=== PATIENT | male | born 1970 | race Caucasian/White ===

== ENCOUNTER 2023-12-08 07:36 | Emergency (ER) | payer OTHER ==
[2023-12-08 07:45] VITALS: BP 118/73; PULSE 88; RESP 18; TEMP 97.5; BMI 27.2
[2023-12-08] MEDS ORDERED: ACETAMINOPHEN INJECTION 100 ML ONE (08:43)
[2023-12-08] MEDS: ACETAMINOPHEN 1000 MG/100 ML BAG IVPB ONE (08:49)
[2023-12-08] MEDS: LACTATED RINGERS SOLUTION 1000 ML INFUS.BAG IV ONE (08:49)
[2023-12-08 08:52] LABS: EPI CELLS 9 /uL (0-25.1); HYALINE CASTS 1 /uL (0-3.1); PH,URINE 5.5 (5.0-8.0); URINE APPEARANCE CLEAR; URINE BACTERIA 6 /uL (0-1359); URINE BILIRUBIN NEGATIVE (NEGATIVE); URINE COLOR DK YELLOW; URINE GLUCOSE (UA) NEGATIVE (NEGATIVE); URINE KETONE TRACE (NEGATIVE); URINE LEUK ESTERASE NEGATIVE (NEGATIVE); URINE NITRITE NEGATIVE (NEGATIVE); URINE PROTEIN 1+ (NEGATIVE); URINE WBC 15 /uL (0-25.8)
[2023-12-08 08:57] LABS: BASO % 0.6 % (0-2.0); EOS % 3.6 % (0-4.5); HEMATOCRIT 40.6 % (35.4-49); HEMOGLOBIN 13.9 GM/dL (11.7-16.9); LYMPH % 26.9 % (8-40); MCH 29.4 pg (25.7-33.7); MCHC 34.3 g/dl (32.0-35.9); MEAN CELL VOLUME 85.8 fl (80-96); MEAN PLT VOLUME 7.7 fl (7.5-11.1); MONO % 6.5 % (3.8-10.2); NEUT % 62.4 % (42.8-82.8); PLATELET COUNT 198 10^3/uL (134-434); RBC 4.73 M/mm3 (4.00-5.60); RDW 13.5 % (11.9-15.9); WHITE BLOOD COUNT 6.6 K/mm3 (4.0-10.0)
[2023-12-08] MEDS ORDERED: ONDANSETRON 4 MG/2 ML VIAL ONE (09:09)
[2023-12-08 09:10] LABS: POTASSIUM 4.3 mmol/L (3.5-5.1); URINE RBC 1181.1 /uL (0-23.9)
[2023-12-08 09:12] LABS: ALBUMIN 3.8 g/dl (3.4-5.0); BLOOD UREA NITROGEN 24.6 mg/dL (7-18); CALCIUM 9.4 mg/dL (8.5-10.1)
[2023-12-08] MEDS: ONDANSETRON 4 MG/2 ML VIAL IVPUSH ONE (09:12)
[2023-12-08 09:16] LABS: CREATININE 1.7 mg/dL (0.55-1.3)
[2023-12-08 09:17] LABS: BILIRUBIN,TOTAL 0.6 mg/dL (0.2-1); TOT PROT 7.2 g/dl (6.4-8.2)
[2023-12-08] MEDS ORDERED: morphine SULFATE 4 MG/ML VIAL ONE (09:46)
[2023-12-08] MEDS: morphine CARPU-JECT 4 MG/1 ML DISP.SYRIN IVPUSH ONE (09:52)
[2023-12-08] MEDS ORDERED: TAMSULOSIN HCL 0.4 MG CAP ONE (12:29)
[2023-12-08] MEDS: TAMSULOSIN HCL 0.4 MG CAP PO ONE (12:30)
== END 2023-12-08 12:30 | disposition home or self-care (01) ==
LOC: JER 07:36
PROC: 3E033NZ Introduction of Analgesics, Hypnotics, Sedatives into Peripheral Vein, Percutaneous Approach (ICD-10-PCS; principal; 2023-12-08)
PROC: 3E033NZ Introduction of Analgesics, Hypnotics, Sedatives into Peripheral Vein, Percutaneous Approach (ICD-10-PCS; 2023-12-08)
PROC: 3E033GC Introduction of Other Therapeutic Substance into Peripheral Vein, Percutaneous Approach (ICD-10-PCS; 2023-12-08)
DX: M54.9 Dorsalgia, unspecified (principal); R10.9 Unspecified abdominal pain; R11.0 Nausea; N20.0 Calculus of kidney
CPT/HCPCS: 36415; 74176-TC; 80053; 81003; 85025; 87086; 99284-25; J0131

== ENCOUNTER 2023-12-09 22:29 | Day surgery (SDC) | payer OTHER ==
[2023-12-09 22:41] VITALS: BMI 27.0
[2023-12-09] MEDS ORDERED: morphine SULFATE 4 MG/ML VIAL ONE (23:08)
[2023-12-09] MEDS ORDERED: ONDANSETRON 4 MG/2 ML VIAL ONE (23:08)
[2023-12-09] MEDS: LACTATED RINGERS SOLUTION 1000 ML INFUS.BAG IV ONE (23:29)
[2023-12-09] MEDS: morphine CARPU-JECT 2 MG/1 ML DISP.SYRIN IVPUSH ONE (23:29)
[2023-12-09] MEDS: ONDANSETRON 4 MG/2 ML VIAL IVPUSH ONE (23:30)
[2023-12-09 23:34] LABS: BASO % 0.5 % (0-2.0); EOS % 1.7 % (0-4.5); HEMATOCRIT 38.6 % (35.4-49); HEMOGLOBIN 13.2 GM/dL (11.7-16.9); MCH 29.6 pg (25.7-33.7); MCHC 34.3 g/dl (32.0-35.9); MEAN CELL VOLUME 86.4 fl (80-96); MEAN PLT VOLUME 7.8 fl (7.5-11.1); MONO % 8.3 % (3.8-10.2); NEUT % 72.5 % (42.8-82.8); PLATELET COUNT 179 10^3/uL (134-434); RBC 4.46 M/mm3 (4.00-5.60); WHITE BLOOD COUNT 7.7 K/mm3 (4.0-10.0)
[2023-12-09 23:42] LABS: INR 0.98 (0.83-1.09); PROTHROMBIN TIME (PATIENT) 11.1 SEC (9.7-13.0)
[2023-12-09 23:44] LABS: ACTIVATED PTT 30.2 SECONDS (25.2-36.5)
[2023-12-10] MEDS ORDERED: ACETAMINOPHEN INJECTION 100 ML ONE (00:01)
[2023-12-10 00:03] LABS: POTASSIUM 4.4 mmol/L (3.5-5.1)
[2023-12-10 00:05] LABS: ALBUMIN 3.7 g/dl (3.4-5.0); BLOOD UREA NITROGEN 30.8 mg/dL (7-18); CALCIUM 9.4 mg/dL (8.5-10.1); MAGNESIUM 2.1 mg/dL (1.8-2.4)
[2023-12-10 00:08] LABS: CREATININE 3.2 mg/dL (0.55-1.3)
[2023-12-10 00:10] LABS: BILIRUBIN,TOTAL 0.4 mg/dL (0.2-1); TOT PROT 6.8 g/dl (6.4-8.2)
[2023-12-10] MEDS: ACETAMINOPHEN 1000 MG/100 ML BAG IVPB ONE (00:22)
[2023-12-10 00:42] LABS: URINE APPEARANCE CLEAR; URINE BILIRUBIN NEGATIVE (NEGATIVE); URINE COLOR YELLOW; URINE GLUCOSE (UA) NEGATIVE (NEGATIVE); URINE KETONE NEGATIVE (NEGATIVE); URINE LEUK ESTERASE NEGATIVE (NEGATIVE); URINE NITRITE NEGATIVE (NEGATIVE); URINE PROTEIN NEGATIVE (NEGATIVE); URINE UROBILINOGEN 0.2 mg/dL (0.2-1.0)
[2023-12-10] MEDS ORDERED: HYDROmorphone HCl 2 MG/ML VIAL ONE (01:53)
[2023-12-10] MEDS: HYDROmorphone HCl 2 MG/ML VIAL IVPUSH ONE (02:02)
[2023-12-10] MEDS ORDERED: morphine SULFATE 4 MG/ML VIAL IVPUSH PRN (05:00)
[2023-12-10] MEDS ORDERED: ACETAMINOPHEN 1000 MG/100 ML BAG IVPB PRN (07:00)
[2023-12-10 10:16] LABS: HEMOGLOBIN 12.4 GM/dL (11.7-16.9); MCH 29.3 pg (25.7-33.7); MCHC 33.6 g/dl (32.0-35.9); MEAN CELL VOLUME 87.1 fl (80-96); MEAN PLT VOLUME 8.2 fl (7.5-11.1); PLATELET COUNT 164 10^3/uL (134-434); RBC 4.25 M/mm3 (4.00-5.60); RDW 13.7 % (11.9-15.9); WHITE BLOOD COUNT 7.4 K/mm3 (4.0-10.0)
[2023-12-10 10:28] LABS: POTASSIUM 3.7 mmol/L (3.5-5.1)
[2023-12-10 10:34] LABS: CALCIUM 8.6 mg/dL (8.5-10.1)
[2023-12-10 10:35] LABS: ALBUMIN 3.3 g/dl (3.4-5.0); MAGNESIUM 1.9 mg/dL (1.8-2.4)
[2023-12-10 10:38] LABS: CREATININE 2.4 mg/dL (0.55-1.3); PHOSPHOROUS 3.3 mg/dL (2.5-4.9)
[2023-12-10 10:39] LABS: BILIRUBIN,TOTAL 0.8 mg/dL (0.2-1)
[2023-12-10] MEDS: TAMSULOSIN HCL 0.4 MG CAP PO SCH (10:39)
[2023-12-10] MEDS: LACTATED RINGERS SOLUTION 1,000 ML/1,000 ML INFUS.BAG IV SCH (10:39)
[2023-12-10] MEDS: ENOXAPARIN NA (PORCINE) 40 MG/0.4 ML DISP.SYRIN SQ SCH (10:39)
[2023-12-10 10:40] LABS: TOT PROT 6.4 g/dl (6.4-8.2)
[2023-12-10] MEDS: ACETAMINOPHEN 1000 MG/100 ML BAG IVPB SCH (18:30)
[2023-12-11] MEDS: amLODIPine BESYLATE 5 MG TABLET (FP) PO SCH (10:45)
[2023-12-11 11:32] LABS: BASO % 0.6 % (0-2.0); EOS % 3.6 % (0-4.5); HEMATOCRIT 36.4 % (35.4-49); HEMOGLOBIN 12.3 GM/dL (11.7-16.9); LYMPH % 30.5 % (8-40); MCH 29.3 pg (25.7-33.7); MCHC 33.9 g/dl (32.0-35.9); MEAN CELL VOLUME 86.5 fl (80-96); MEAN PLT VOLUME 7.8 fl (7.5-11.1); MONO % 9.7 % (3.8-10.2); NEUT % 55.6 % (42.8-82.8); PLATELET COUNT 159 10^3/uL (134-434); RBC 4.21 M/mm3 (4.00-5.60); RDW 13.9 % (11.9-15.9); WHITE BLOOD COUNT 4.1 K/mm3 (4.0-10.0)
[2023-12-11 11:39] LABS: INR 1.08 (0.83-1.09); PROTHROMBIN TIME (PATIENT) 12.2 SEC (9.7-13.0)
[2023-12-11 12:18] LABS: ALBUMIN 3.2 g/dl (3.4-5.0); BLOOD UREA NITROGEN 15.3 mg/dL (7-18); CALCIUM 9.3 mg/dL (8.5-10.1)
[2023-12-11 12:19] LABS: MAGNESIUM 1.9 mg/dL (1.8-2.4)
[2023-12-11 12:21] LABS: CREATININE 1.3 mg/dL (0.55-1.3)
[2023-12-11 12:22] LABS: PHOSPHOROUS 2.8 mg/dL (2.5-4.9)
[2023-12-11 12:23] LABS: BILIRUBIN,TOTAL 0.9 mg/dL (0.2-1); TOT PROT 6.1 g/dl (6.4-8.2)
[2023-12-11] MEDS ORDERED: LACTATED RINGERS SOLUTION 1,000 ML/1,000 ML INFUS.BAG IV SCH (13:16)
[2023-12-11] MEDS ORDERED: LACTATED RINGERS SOLUTION 1,000 ML IV SCH (15:15)
[2023-12-11] MEDS ORDERED: ONDANSETRON 4 MG/2 ML VIAL IVPUSH PRN ×2 (15:15→17:39)
[2023-12-11] MEDS ORDERED: MIDAZOLAM HCL 2 MG/2 ML SINGLE DOSE VIAL ONE (16:23)
[2023-12-11] MEDS ORDERED: PROPOFOL 20 ML ONE (16:23)
[2023-12-11] MEDS: ceFAZolin SODIUM 1 GM VIAL IVPB ONE (16:37)
[2023-12-11] MEDS ORDERED: ONDANSETRON 4 MG/2 ML VIAL ONE (17:04)
[2023-12-11] MEDS ORDERED: DEXAMETHASONE SOD PHOSPHATE 4 MG/1 ML VIAL ONE (17:04)
[2023-12-11] MEDS ORDERED: morphine SULFATE 4 MG/ML VIAL IVPUSH PRN (17:39)
[2023-12-11] MEDS: LACTATED RINGERS SOLUTION 1,000 ML IV SCH (17:49)
[2023-12-11] MEDS ORDERED: ACETAMINOPHEN INJECTION 100 ML ONE (17:51)
[2023-12-11] MEDS: ACETAMINOPHEN 1000 MG/100 ML BAG IVPB SCH (17:52)
[2023-12-12 08:35] LABS: BASO % 0.3 % (0-2.0); EOS % 0.1 % (0-4.5); HEMATOCRIT 36.1 % (35.4-49); HEMOGLOBIN 12.6 GM/dL (11.7-16.9); LYMPH % 12.4 % (8-40); MCHC 34.9 g/dl (32.0-35.9); MEAN CELL VOLUME 85.8 fl (80-96); MONO % 5.6 % (3.8-10.2); NEUT % 81.6 % (42.8-82.8); PLATELET COUNT 186 10^3/uL (134-434); RBC 4.21 M/mm3 (4.00-5.60); RDW 13.8 % (11.9-15.9); WHITE BLOOD COUNT 7.3 K/mm3 (4.0-10.0)
[2023-12-12] MEDS: TAMSULOSIN HCL 0.4 MG CAP PO SCH (08:38)
[2023-12-12 08:47] LABS: POTASSIUM 4.1 mmol/L (3.5-5.1)
[2023-12-12 08:53] LABS: ALBUMIN 3.2 g/dl (3.4-5.0); BLOOD UREA NITROGEN 20.6 mg/dL (7-18); CALCIUM 8.9 mg/dL (8.5-10.1)
[2023-12-12 08:54] LABS: MAGNESIUM 1.5 mg/dL (1.8-2.4)
[2023-12-12 08:56] LABS: BILIRUBIN,TOTAL 0.6 mg/dL (0.2-1); TOT PROT 6.3 g/dl (6.4-8.2)
[2023-12-12 08:57] LABS: CREATININE 1.3 mg/dL (0.55-1.3); PHOSPHOROUS 3.5 mg/dL (2.5-4.9)
[2023-12-12] MEDS: amLODIPine BESYLATE 5 MG TABLET (FP) PO SCH (10:09)
[2023-12-12] MEDS: MAGNESIUM CL 64 MG TABLET.SA PO ONE (10:11)
[2023-12-12 12:14] VITALS: BP 111/71; PULSE 88; RESP 19; TEMP 98.2
== END 2023-12-12 10:51 | disposition home or self-care (01) ==
LOC: JER 22:29 → JERBED 12-10 01:00 → UNDOADMOB 12-10 01:00 → J6W 12-10 04:55 → JERBED 12-10 04:55 → JASUSAT 12-11 14:39 → J6W 12-11 14:45 → JASUSAT 12-12 10:51
PROC: 0T778DZ Dilation of Left Ureter with Intraluminal Device, Via Natural or Artificial Opening Endoscopic (ICD-10-PCS; principal; 2023-12-11 12:00)
DX: N13.1 Hydronephrosis with ureteral stricture, not elsewhere classified (principal)
CPT/HCPCS: 36415; 74176-TC; 76000-TC-FY; 76775-TC; 80053; 81003; 83735; 84100; 85025; 85027; 85610; 85730; 86850; 86900; 86901; 87086; 93005; 93010; 94760; 99285-25; C1747; C1758; C1769; C2617; J0131

== ENCOUNTER 2023-12-31 22:22 | Emergency (ER) | payer OTHER ==
[2023-12-31 22:29] VITALS: BP 140/73; PULSE 110; RESP 22; TEMP 98.8; BMI 27.0
[2023-12-31] MEDS ORDERED: morphine SULFATE 4 MG/ML VIAL ONE (22:58)
[2023-12-31 23:05] LABS: EPI CELLS 1 /uL (0-25.1); HYALINE CASTS 0 /uL (0-3.1); PH,URINE 7.5 (5.0-8.0); URINE APPEARANCE CLEAR; URINE BACTERIA 13 /uL (0-1359); URINE BILIRUBIN NEGATIVE (NEGATIVE); URINE COLOR YELLOW; URINE GLUCOSE (UA) NEGATIVE (NEGATIVE); URINE KETONE NEGATIVE (NEGATIVE); URINE LEUK ESTERASE NEGATIVE (NEGATIVE); URINE NITRITE NEGATIVE (NEGATIVE); URINE PROTEIN NEGATIVE (NEGATIVE); URINE RBC 216 /uL (0-23.9); URINE WBC 4 /uL (0-25.8)
[2023-12-31] MEDS: morphine CARPU-JECT 4 MG/1 ML DISP.SYRIN IVPUSH ONE (23:13)
[2023-12-31] MEDS ORDERED: TAMSULOSIN HCL 0.4 MG CAP ONE (23:18)
[2023-12-31 23:21] LABS: BASO % 0.6 % (0-2.0); EOS % 1.6 % (0-4.5); HEMATOCRIT 37.7 % (35.4-49); HEMOGLOBIN 12.8 GM/dL (11.7-16.9); LYMPH % 17.4 % (8-40); MCH 29.3 pg (25.7-33.7); MEAN CELL VOLUME 86.1 fl (80-96); MEAN PLT VOLUME 8.3 fl (7.5-11.1); NEUT % 75.4 % (42.8-82.8); PLATELET COUNT 238 10^3/uL (134-434); RBC 4.38 M/mm3 (4.00-5.60); RDW 13.6 % (11.9-15.9); WHITE BLOOD COUNT 9.9 K/mm3 (4.0-10.0)
[2023-12-31] MEDS: TAMSULOSIN HCL 0.4 MG CAP PO ONE (23:21)
[2023-12-31 23:27] LABS: INR 1.02 (0.83-1.09); PROTHROMBIN TIME (PATIENT) 11.7 SEC (9.7-13.0)
[2023-12-31 23:30] LABS: ACTIVATED PTT 31.1 SECONDS (25.2-36.5)
[2023-12-31 23:32] LABS: POTASSIUM 3.8 mmol/L (3.5-5.1)
[2023-12-31 23:33] LABS: CALCIUM 9.8 mg/dL (8.5-10.1)
[2023-12-31 23:34] LABS: BLOOD UREA NITROGEN 13.9 mg/dL (7-18)
[2023-12-31 23:37] LABS: CREATININE 1.5 mg/dL (0.55-1.3)
[2023-12-31 23:39] LABS: BILIRUBIN,TOTAL 0.4 mg/dL (0.2-1); TOT PROT 7.3 g/dl (6.4-8.2)
[2023-12-31] MEDS: KETOROLAC TROMETHAMINE 15 MG/ML VIAL IVPUSH ONE (23:46)
[2024-01-01] MEDS ORDERED: KETOROLAC TROMETHAMINE 15 MG/ML VIAL IVPUSH ONE (01:47)
[2024-01-01] MEDS ORDERED: KETOROLAC TROMETHAMINE 15 MG/ML VIAL ONE (01:58)
== END 2024-01-01 02:32 | disposition home or self-care (01) ==
LOC: JER 22:22
PROC: 3E033NZ Introduction of Analgesics, Hypnotics, Sedatives into Peripheral Vein, Percutaneous Approach (ICD-10-PCS; principal; 2023-12-31)
DX: N13.2 Hydronephrosis with renal and ureteral calculous obstruction (principal); R10.9 Unspecified abdominal pain
CPT/HCPCS: 36415; 74176-TC; 80053; 81003; 85025; 85610; 85730; 86850; 86900; 86901; 87086; 93005; 93010; 99285-25

== ENCOUNTER 2024-01-05 21:41 | Observation (INO) | payer OTHER ==
[2024-01-05] MEDS ORDERED: MORPHINE SULFATE 2 MG/ML SYRINGE ONE (22:22)
[2024-01-05] MEDS: morphine CARPU-JECT 2 MG/1 ML DISP.SYRIN IVPUSH ONE (22:30)
[2024-01-05 23:04] LABS: URINE APPEARANCE CLEAR; URINE BILIRUBIN NEGATIVE (NEGATIVE); URINE COLOR YELLOW; URINE GLUCOSE (UA) NEGATIVE (NEGATIVE); URINE KETONE NEGATIVE (NEGATIVE); URINE LEUK ESTERASE NEGATIVE (NEGATIVE); URINE NITRITE NEGATIVE (NEGATIVE); URINE PROTEIN NEGATIVE (NEGATIVE); URINE UROBILINOGEN 0.2 mg/dL (0.2-1.0)
[2024-01-05 23:11] LABS: CALCIUM 9.2 mg/dL (8.5-10.1)
[2024-01-05 23:12] LABS: ALBUMIN 3.7 g/dl (3.4-5.0); BLOOD UREA NITROGEN 23.1 mg/dL (7-18)
[2024-01-05 23:15] LABS: CREATININE 1.8 mg/dL (0.55-1.3)
[2024-01-05 23:17] LABS: BILIRUBIN,TOTAL 0.3 mg/dL (0.2-1); TOT PROT 6.8 g/dl (6.4-8.2)
[2024-01-05] MEDS ORDERED: morphine SULFATE 4 MG/ML VIAL ONE (23:36)
[2024-01-05] MEDS: morphine SULFATE 4 MG/ML VIAL IVPUSH ONE (23:42)
[2024-01-06] MEDS ORDERED: morphine SULFATE 4 MG/ML VIAL ONE (00:53)
[2024-01-06] MEDS: morphine SULFATE 4 MG/ML VIAL IVPUSH ONE (00:58)
[2024-01-06] MEDS ORDERED: MORPHINE SULFATE 2 MG/ML SYRINGE ONE (04:00)
[2024-01-06] MEDS: SODIUM CHLORIDE 1,000 ML IV SCH ×2 (04:18→16:56)
[2024-01-06] MEDS: morphine CARPU-JECT 4 MG/1 ML DISP.SYRIN IVPUSH SCH (04:18)
[2024-01-06 05:06] LABS: HEMATOCRIT 33.1 % (35.4-49); HEMOGLOBIN 11.3 GM/dL (11.7-16.9); MCH 29.6 pg (25.7-33.7); MCHC 34.1 g/dl (32.0-35.9); MEAN CELL VOLUME 86.9 fl (80-96); MEAN PLT VOLUME 8.5 fl (7.5-11.1); PLATELET COUNT 165 10^3/uL (134-434); RBC 3.81 M/mm3 (4.00-5.60); RDW 13.1 % (11.9-15.9); WHITE BLOOD COUNT 6.6 K/mm3 (4.0-10.0)
[2024-01-06 06:07] VITALS: BMI 25.4
[2024-01-06] MEDS: TAMSULOSIN HCL 0.4 MG CAP PO SCH (08:26)
[2024-01-06 09:58] LABS: HEMATOCRIT 34.3 % (35.4-49); HEMOGLOBIN 11.7 GM/dL (11.7-16.9); MCH 29.7 pg (25.7-33.7); MCHC 34.2 g/dl (32.0-35.9); MEAN CELL VOLUME 86.8 fl (80-96); MEAN PLT VOLUME 8.5 fl (7.5-11.1); PLATELET COUNT 169 10^3/uL (134-434); RBC 3.95 M/mm3 (4.00-5.60); RDW 13.3 % (11.9-15.9); WHITE BLOOD COUNT 5.9 K/mm3 (4.0-10.0)
[2024-01-06 10:00] LABS: INR 1.06 (0.83-1.09)
[2024-01-06] MEDS ORDERED: CEFTRIAXONE 1 GM in DEXTROSE 5%-WATER - 50 ML IVPB SCH (10:00)
[2024-01-06] MEDS: amLODIPine BESYLATE 5 MG TABLET (FP) PO SCH (11:20)
[2024-01-06 11:23] LABS: POTASSIUM 3.7 mmol/L (3.5-5.1)
[2024-01-06 11:26] LABS: CALCIUM 9.1 mg/dL (8.5-10.1)
[2024-01-06 11:27] LABS: ALBUMIN 3.4 g/dl (3.4-5.0); BLOOD UREA NITROGEN 17.3 mg/dL (7-18); MAGNESIUM 1.8 mg/dL (1.8-2.4)
[2024-01-06 11:30] LABS: CREATININE 1.3 mg/dL (0.55-1.3); PHOSPHOROUS 4.1 mg/dL (2.5-4.9)
[2024-01-06 11:31] LABS: BILIRUBIN,TOTAL 0.7 mg/dL (0.2-1)
[2024-01-06 11:32] LABS: TOT PROT 6.4 g/dl (6.4-8.2)
[2024-01-06] MEDS: CEFTRIAXONE 1 G/50 ML PREMIX 50 ML IVPB SCH (12:14)
[2024-01-06 14:18] VITALS: RESP 18
[2024-01-06] MEDS ORDERED: LIDOCAINE HCL 1%, 10 MG/ML (20ML VIAL) ONE (15:46)
[2024-01-06] MEDS ORDERED: BUPIVACAINE HCL/PF 0.5% (5MG/ML) 10 ML VIAL ONE (15:47)
[2024-01-07] MEDS: LACTATED RINGERS SOLUTION 1,000 ML/1,000 ML INFUS.BAG IV SCH (01:30)
[2024-01-07 08:31] VITALS: BP 115/75; PULSE 82; TEMP 98.4
[2024-01-07 10:09] LABS: BASO % 0.5 % (0-2.0); EOS % 4.3 % (0-4.5); HEMATOCRIT 36.6 % (35.4-49); HEMOGLOBIN 12.4 GM/dL (11.7-16.9); LYMPH % 27.5 % (8-40); MCH 29.3 pg (25.7-33.7); MCHC 33.8 g/dl (32.0-35.9); MEAN CELL VOLUME 86.6 fl (80-96); MEAN PLT VOLUME 8.4 fl (7.5-11.1); MONO % 6.3 % (3.8-10.2); NEUT % 61.4 % (42.8-82.8); PLATELET COUNT 183 10^3/uL (134-434); RBC 4.22 M/mm3 (4.00-5.60); RDW 13.7 % (11.9-15.9); WHITE BLOOD COUNT 5.6 K/mm3 (4.0-10.0)
[2024-01-07 10:37] LABS: POTASSIUM 3.9 mmol/L (3.5-5.1)
[2024-01-07 11:05] LABS: ALBUMIN 3.5 g/dl (3.4-5.0); BLOOD UREA NITROGEN 17.8 mg/dL (7-18); CALCIUM 9.4 mg/dL (8.5-10.1); MAGNESIUM 1.9 mg/dL (1.8-2.4)
[2024-01-07 11:08] LABS: CREATININE 1.2 mg/dL (0.55-1.3)
[2024-01-07 11:09] LABS: PHOSPHOROUS 2.9 mg/dL (2.5-4.9)
[2024-01-07 11:10] LABS: BILIRUBIN,TOTAL 0.7 mg/dL (0.2-1); TOT PROT 6.7 g/dl (6.4-8.2)
[2024-01-11 15:08] LABS: CA OXALATE MONOHYDR. 100 % (.); SIZE 4x3 mm (.); WEIGHT 23 mg (.)
== END 2024-01-07 16:15 | disposition home or self-care (01) ==
LOC: JER 21:41 → JERBED 22:25 → J6S 01-06 05:29
PROVIDERS: ADMIT Internal Medicine; ATTEND Internal Medicine
PROC: 0TF7XZZ Fragmentation in Left Ureter, External Approach (ICD-10-PCS; principal; 2024-01-05)
PROC: 3E03329 Introduction of Other Anti-infective into Peripheral Vein, Percutaneous Approach (ICD-10-PCS; 2024-01-05)
PROC: 3E0337Z Introduction of Electrolytic and Water Balance Substance into Peripheral Vein, Percutaneous Approach (ICD-10-PCS; 2024-01-05)
PROC: 3E033NZ Introduction of Analgesics, Hypnotics, Sedatives into Peripheral Vein, Percutaneous Approach (ICD-10-PCS; 2024-01-05)
DX: N13.2 Hydronephrosis with renal and ureteral calculous obstruction (principal); I10 Essential (primary) hypertension; Z87.442 Personal history of urinary calculi; R79.89 Other specified abnormal findings of blood chemistry; Z53.8 Procedure and treatment not carried out for other reasons
CPT/HCPCS: 36415; 76775-TC; 80053; 81003; 82360; 83735; 84100; 85025; 85027; 85610; 86850; 86900; 86901; 87086; 93005; 93010; 96361; 96365; 96375; 96376; 99285-25; G0378